=== PATIENT | male | born 1935 | race Caucasian/White ===

== ENCOUNTER 2019-02-06 21:43 | Observation (INO) | payer OTHER ==
--- NOTE | 2019-02-06 21:50 | EDPHY ---
H & P Time Seen by Provider: 02/06/19 21:49 HPI/ROS: CHIEF COMPLAINT: [ ] HISTORY OF PRESENT ILLNESS: [Need 4: Location, Duration, Severity, Quality, Context, Timing Modifying Factors, Associated S&S] REVIEW OF SYSTEMS: A comprehensive 10 point review of systems is otherwise negative aside from elements mentioned in the history of present illness. Source: Patient Exam Limitations: No limitations - Physical Exam Exam: General Appearance: [Alert, no distress] Head: [Atraumatic] Eyes: [Pupils equal, round, reactive] ENT, Mouth: [No hemotympanum, no oral trauma] Neck: [Nontender, trachea midline] Respiratory: [No chest wall tender, subcutaneous air, lungs clear bilaterally] Cardiovascular: [Regular rate and rhythm] Abdomen: [Abdomen is soft and nontender, pelvis stable] Skin: [No lacerations, No abrasion] Back: [No midline T/L/S pain] Extremities: [Nontender, full range of motion] Neurological: [A&Ox3, normal motor function, normal sensory exam] Allergies/Adverse Reactions: No Known Allergies Allergy (Unverified 02/06/19 21:46) Home Medications: Medication Instructions Recorded Aspirin 02/06/19 Finasteride 02/06/19 Departure - Departure Referrals: Patient,NotPresent [Primary Care Provider] - As per Instructions
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
[2019-02-06] MEDS ORDERED: IOPAMIDOL (ISOVUE-300) 100 ML BTL ONE (22:06)
[2019-02-06] MEDS ORDERED: NS 1,000 ML IV ONE (22:11)
[2019-02-06] MEDS ORDERED: ACETAMINOPHEN 500 MG TAB PO ONE (23:30)
[2019-02-07 00:01] LABS: PLATELET COUNT 272 10^3/uL (150-400)
[2019-02-07] MEDS ORDERED: ACETAMINOPHEN 325 MG TAB PO PRN (00:07)
[2019-02-07] MEDS ORDERED: HYDROCODONE/APAP 5/325 TAB PO PRN (00:07)
[2019-02-07] MEDS ORDERED: ONDANSETRON DISINTEGRATING 4 MG TAB PO PRN (00:07)
[2019-02-07] MEDS ORDERED: D5W 1/2 NS W/ 20 KCl/L 1,000 ML IV SCH (00:15)
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
[2019-02-07] MEDS ORDERED: HYDROmorphONE/DILAUDID 1 MG/ML INJ IVP PRN (00:21)
[2019-02-07] MEDS ORDERED: IBUPROFEN 600 MG TAB PO SCH (06:00)
[2019-02-07 07:22] VITALS: BP 134/69
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
[2019-02-07] MEDS ORDERED: TIMOLOL 0.5% 15 ML OPHT.BTL LEFTEYE SCH (09:00)
[2019-02-07] MEDS ORDERED: CARBOXYMETHYLCELLULOSE 0.5% 0.4 ML DROPERETTE RTEYE SCH (09:00)
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
--- NOTE | 2019-02-07 15:40 | CPEKG ---
Test Reason : OPEN Blood Pressure : / mmHG Vent. Rate : 059 BPM Atrial Rate : 059 BPM P-R Int : 175 ms QRS Dur : 090 ms QT Int : 406 ms P-R-T Axes : 070 068 -16 degrees QTc Int : 403 ms Atrial-paced complexes Consider left ventricular hypertrophy Borderline T abnormalities, inferior leads Confirmed by Cecilio Linares ([id number]) on 02/07/2019 3:40:01 PM Referred By: Neftali Pompa Confirmed By:Cecilio Linares
[2019-02-07] MEDS ORDERED: FINASTERIDE 5 MG TAB PO SCH (21:00)
[2019-02-07] MEDS ORDERED: DOCUSATE SODIUM 100 MG CAP PO SCH (21:00)
== END 2019-02-07 12:00 | disposition home or self-care (01) ==
LOC: EDUNIT# → F2N 02-07 00:24
PROVIDERS: ADMIT Surgery; ATTEND Surgery
DX: S22.43XA Multiple fractures of ribs, bilateral, initial encounter for closed fracture (principal); S22.22XA Fracture of body of sternum, initial encounter for closed fracture; E86.9 Volume depletion, unspecified; V43.62XA Car passenger injured in collision with other type car in traffic accident, initial encounter; Y92.410 Unspecified street and highway as the place of occurrence of the external cause
CPT/HCPCS: 71045; 71260; 74177; 92523; 93005; 96360; 96361; 97161; 97165; 97530; 99285; G0378; 82435-PO; 82565-PO; 82947-PO; 84132-PO; 84295-PO; 84520-PO; 85014-ER; Q9967